=== PATIENT | male | born 1995 | race Asian ===

== ENCOUNTER 2019-01-27 12:32 | Emergency (ER) | payer MEDICAID ==
[~2019-01-27] VITALS: Ht 182.9 cm; Wt 75.3 kg
[2019-01-27 12:42] VITALS: BP 132/84
== END 2019-01-27 13:38 | disposition home or self-care (01) ==
LOC: ED 13:32
DX: F20.9 Schizophrenia, unspecified (principal); Z76.0 Encounter for issue of repeat prescription
CPT/HCPCS: 99283